=== PATIENT | female | born 1995 | race Caucasian/White ===

== ENCOUNTER → 2018-06-29 10:39 | Outpatient (CLI) | payer SELFPAY ==
--- NOTE | 2018-06-29 | DI.US.S_ITS ---
PROCEDURE: US OB >= 14 WEEKS FETUS INDICATIONS: 20 WEEK ANATOMICAL SURVEY OUTSIDE/PRIOR DATING DATA: Last menstrual period (LMP): Not available. LMP-based estimated date of delivery (OBDULIO): None available. First dating scan (date and location): None. Estimated date of delivery (OBDULIO) from first dating scan: None. TECHNIQUE: Real-time scanning was performed of the fetus, with image documentation and biometric measurements. Endovaginal scanning: Not performed COMPARISON: None. FINDINGS: General: A single living intrauterine gestation is present. Presentation: Vertex Placenta: Placental position is fundal anterior, without previa. Amniotic fluid index: 11.4 cm, normal range is 5-24 cm. heart rate: 150 beats per minute. Maternal cervical canal: 3.8 cm long. Normal lower limit is 2.5 cm. biometrics: Biparietal diameter: 4.9 cm, 20 weeks 6 days Head circumference: 18.2 cm, 20 weeks 4 days Abdominal circumference: 16 cm, 21 week one day Femur length: 3.6 cm, 21 week 3 day Estimated gestational age from initial scan: not applicable. Composite gestational age from present scan: 21 weeks 0 days Estimated weight and percentile: 404 g Measurement variability for biometric dating: +/- 7 days from 14 weeks to 15 weeks 6 days gestation, +/- 10 days from 16 weeks to 21 weeks 6 days gestation, +/- 2 weeks from 22 weeks to 27 weeks 6 days gestation, +/- 3 weeks for 28 weeks gestation or later. weight reference: 4500 g or EFW >90/95% is considered macrosomia or large for gestational age. EFW <10% is small for gestational age. EFW 5% or less is considered intra-uterine growth restriction. Anatomic survey: Neuro: Ventricles are non-dilated at less than 10 mm. Cisterna magna is normal at 3-11 mm. Cerebellum is normal in size and morphology. Nuchal skin fold: Normal at less than 6 mm between 14-21 weeks gestational age. Face: Nose and lips, facial profile are normal. Spine: No evidence for spina bifida. Heart: 4-chambered heart is present, with normal ventricular outflow tracts. Diaphragm: Diaphragm is intact. Stomach: Left-sided stomach is present. Kidneys: No hydronephrosis. Normal is less than 5 mm in 2nd trimester, less than 7 mm in 3rd trimester. Cord: 3-vessel cord has orthotopic insertion. Bladder: Normal in size. Extremities: All 4 extremities identified. IMPRESSION: Single live intrauterine with fetus in vertex presentation. heart rate is 150 beats per minute. Estimated gestational age is 21 weeks zero day. Normal visualized anatomy. Dictated by: Khadar Carias M.D. on 06/29/2018 at 13:13 Approved by: Khadar Carias M.D. on 06/29/2018 at 14:14
== END ==
PROVIDERS: Visit Provider Midwife
DX: Z36.89 Encounter for other specified antenatal screening (principal); Z3A.21 21 weeks gestation of pregnancy
CPT/HCPCS: 76811

== ENCOUNTER → 2018-10-22 12:04 | Outpatient (CLI) | payer OTHER, MEDICAID, SELFPAY ==
--- NOTE | 2018-10-22 | DI.US.S_ITS ---
PROCEDURE: US OB LIMITED INDICATIONS: POSITION CHECK OUTSIDE/PRIOR DATING DATA: Last menstrual period (LMP): 02/04/18. LMP-based estimated date of delivery (OBDULIO): 11/11/18. First dating scan (date and location): 06/29/18 Estimated date of delivery (OBDULIO) from first dating scan: 11/09/18. TECHNIQUE: Real-time scanning was performed of the fetus, with image documentation. Endovaginal scanning: Not needed for this examination COMPARISON: None. FINDINGS: A single living intrauterine gestation is present. Presentation: Vertex. Placenta: Placental position is anterior right-sided, without previa. Amniotic fluid index: 13.9 cm, normal range is 5-24 cm. heart rate: 118 beats per minute. Estimated gestational age from initial scan: 37 weeks 3 days. IMPRESSION: Vertex presentation. Normal amniotic fluid volume. The placenta is anterior located predominantly to the right of midline. Dictated by: Elian Davila M.D. on 10/22/2018 at 14:01 Approved by: Elian Davila M.D. on 10/22/2018 at 14:03
== END ==
PROVIDERS: Visit Provider Midwife
DX: O32.9XX0 Maternal care for malpresentation of fetus, unspecified, not applicable or unspecified (principal); Z3A.37 37 weeks gestation of pregnancy
CPT/HCPCS: 76815

== ENCOUNTER → 2020-01-03 10:40 | Outpatient (CLI) | payer OTHER, SELFPAY ==
--- NOTE | 2020-01-03 | DI.US.S_ITS ---
PROCEDURE: US OB <= 14 WEEKS FETUS INDICATIONS: VIABILITY AND DATING OUTSIDE/PRIOR DATING DATA: Last menstrual period (LMP): Unknown. LMP-based estimated date of delivery (OBDULIO): Unknown . First dating scan (date and location): This examination . Estimated date of delivery (OBDULIO) from first dating scan: See below. TECHNIQUE: Real-time scanning was performed of the fetus and maternal pelvic organs, with image documentation. Endovaginal scanning was also performed to better visualize the fetus and maternal ovaries. COMPARISON: None. FINDINGS: Embryo: A suspected irregular gestational sac is present. Mean gestational sac diameter measures 1.3 cm, 6 weeks 1 day. However, no pole is identified. There is a questionable yolk sac. Perigestational hemorrhage measuring 1.2 x 0.8 x 1.1 cm. Measurement variability in dating: +/- 4 weeks by LMP, +/- 7 days by mean sac diameter (use before 6 weeks gestation if crown-rump length not able to be measured), +/- 5 days by crown-rump length (up to 8 weeks 6 days gestation), +/- 7 days by crown-rump length (up to 13 weeks 6 days gestation). Maternal organs: Ovaries unremarkable except for a presumed left-sided corpus luteum measuring 2.8 cm. . Mild right hydronephrosis IMPRESSION: A presumed intrauterine gestational sac however no pole identified. Perigestational hemorrhage noted. Overall findings suggest intrauterine demise. Technically cannot exclude ectopic . Recommend correlation with serial beta HCG values and if necessary a follow-up ultrasound in 1 week could be performed. Dictated by: Baljit Hand M.D. on 01/03/2020 at 13:43 Approved by: Baljit Hand M.D. on 01/03/2020 at 13:54
== END ==
PROVIDERS: PCP Naturopath; Referring Provider Naturopath; Visit Provider Midwife
DX: O36.80X0 Pregnancy with inconclusive fetal viability, not applicable or unspecified
CPT/HCPCS: 76801

== ENCOUNTER → 2020-01-08 17:01 | Outpatient (CLI) | payer OTHER, MEDICAID, SELFPAY ==
[2020-01-08 18:56] LABS: HCG Quantitative /Beta subunit 48196 mIU/mL
== END ==
PROVIDERS: PCP Naturopath; Referring Provider Midwife; Visit Provider Midwife
DX: O03.9 Complete or unspecified spontaneous abortion without complication (principal)
CPT/HCPCS: 36415; 84702

== ENCOUNTER → 2020-01-10 17:24 | Outpatient (CLI) | payer OTHER, MEDICAID, SELFPAY ==
[2020-01-10 19:35] LABS: HCG Quantitative /Beta subunit 43375 mIU/mL
== END ==
PROVIDERS: PCP Naturopath; Referring Provider Midwife; Visit Provider Midwife
DX: O03.9 Complete or unspecified spontaneous abortion without complication (principal)
CPT/HCPCS: 36415; 84702

== ENCOUNTER → 2021-01-25 14:08 | Outpatient (CLI) | payer OTHER, MEDICAID, SELFPAY ==
--- NOTE | 2021-01-25 | DI.US.S_ITS ---
PROCEDURE: US OB LIMITED INDICATIONS: SPOTTING OUTSIDE/PRIOR DATING DATA: Last menstrual period (LMP): October 18, 2020. LMP-based estimated date of delivery (OBDULIO): July 25, 2021 . First dating scan (date and location): [facility]; January 25, 2021 . Estimated date of delivery (OBDULIO) from first dating scan: July 26, 2021 . TECHNIQUE: Real-time scanning was performed of the fetus, with image documentation. COMPARISON: None. FINDINGS: A single living intrauterine gestation is present. Presentation: Cephalic. Placenta: Placental position is posterior , marginal. heart rate: 147 beats per minute. Maternal cervical canal: Not well visualized. Estimated gestational age from initial scan: 14 weeks. BPD: 2.4 cm HC: 9.1 cm HC: 7.7 cm FL: 1.2 cm IMPRESSION: 1. Single live intrauterine gestation. 2. Posterior marginal placenta previa. Dictated by: Barrera Rubalcava M.D. on 01/25/2021 at 16:37 Approved by: Barrera Rubalcava M.D. on 01/25/2021 at 16:43
== END ==
PROVIDERS: PCP Naturopath; Referring Provider Midwife; Visit Provider Midwife
DX: O26.852 Spotting complicating pregnancy, second trimester (principal); O44.22 Partial placenta previa NOS or without hemorrhage, second trimester; Z3A.14 14 weeks gestation of pregnancy
CPT/HCPCS: 76815

== ENCOUNTER → 2021-03-09 10:09 | Outpatient (CLI) | payer OTHER, MEDICAID, SELFPAY ==
--- NOTE | 2021-03-09 | DI.US.S_ITS ---
PROCEDURE: US OB >= 14 WEEKS FETUS INDICATIONS: ANATOMY OUTSIDE/PRIOR DATING DATA: Last menstrual period (LMP): 10/18/2020. LMP-based estimated date of delivery (OBDULIO): 07/25/2021. First dating scan (date and location): 01/25/2021. Estimated date of delivery (OBDULIO) from first dating scan: 07/26/2021. The calculations are made using the ultrasound generated OBDULIO of 07/26/2021. TECHNIQUE: Real-time scanning was performed of the fetus, with image documentation and biometric measurements. Endovaginal scanning: Not performed COMPARISON: None. FINDINGS: General: A single living intrauterine gestation is present. Presentation: Breech. Placenta: Placental position is posterior , without previa. Amniotic fluid index: 11.4 cm, normal range is 5-24 cm. Single deepest vertical pocket is 3.7 cm. heart rate: 143 beats per minute. Maternal cervical canal: 6.3 cm long. Normal lower limit is 2.5 cm. biometrics: Biparietal diameter: 4.7 centimeters Head circumference: 17.3 centimeters Abdominal circumference: 14.7 centimeters Femur length: 3.0 centimeters Clinically estimated gestational age: 20 weeks 1 day Composite gestational age from present scan: 19 weeks 6 days Estimated weight and percentile: 308 grams, 23rd percentile Anatomic survey: Neuro: Ventricles are non-dilated at less than 10 mm. Cisterna magna is normal at 3-11 mm. Cerebellum is normal in size and morphology. Nuchal skin fold: Normal at less than 6 mm between 14-21 weeks gestational age. Face: Nose and lips, facial profile are normal. Spine: No evidence for spina bifida. Heart: 4-chambered heart is present, with normal ventricular outflow tracts. Diaphragm: Diaphragm is intact. Stomach: Left-sided stomach is present. Kidneys: No hydronephrosis. Normal is less than 5 mm in 2nd trimester, less than 7 mm in 3rd trimester. Cord: 3-vessel cord has orthotopic insertion. Bladder: Normal in size. Extremities: All 4 extremities identified. IMPRESSION: Single live intrauterine gestation with estimated ultrasound age of 19 weeks 6 days, normal ELA, normal anatomic survey, and estimated weight at the 23rd percentile Dictated by: Antolin Mendes M.D. on 03/12/2021 at 13:40 Approved by: Antolin Mendes M.D. on 03/12/2021 at 13:47
== END ==
PROVIDERS: PCP Naturopath; Referring Provider Midwife; Visit Provider Midwife
DX: Z34.02 Encounter for supervision of normal first pregnancy, second trimester (principal); Z3A.19 19 weeks gestation of pregnancy
CPT/HCPCS: 76811

== ENCOUNTER → 2023-07-27 13:21 | Outpatient (CLI) | payer OTHER, SELFPAY ==
--- NOTE | 2023-07-27 13:24 | DI.RAD.S_ITS ---
PROCEDURE: XR KNEE LT 3V INDICATIONS: L KNEE PAIN TECHNIQUE: 3 views of the knee were acquired. COMPARISON: None. FINDINGS: Bones: No fractures or dislocations. No suspicious bony lesions. Soft tissues: No joint effusion. No suspicious soft tissue calcifications. IMPRESSION: No acute osseous abnormality. If pain persists with conservative management, consider repeat x-ray in 10-14 days or cross-sectional imaging. Dictated by: Lenny Hernandez M.D. on 07/27/2023 at 14:21 Approved by: Lenny Hernandez M.D. on 07/27/2023 at 14:23
== END ==
PROVIDERS: PCP Nurse Practitioner Family; Referring Provider Nurse Practitioner Family; Visit Provider Nurse Practitioner Family
DX: M25.562 Pain in left knee (principal)
CPT/HCPCS: 73562

== ENCOUNTER → 2024-02-19 13:25 | Outpatient (CLI) | payer OTHER, SELFPAY | PROVIDERS: PCP Nurse Practitioner Family; Visit Provider Physician Assistant | DX: J02.9 Acute pharyngitis, unspecified (principal) | CPT/HCPCS: 87070 ==